=== PATIENT | female | born 1990 | race Caucasian/White ===

== ENCOUNTER 2019-04-26 16:54 | Emergency (ER) | payer MEDICARE, MEDICAID ==
[~2019-04-26] VITALS: Ht 165.1 cm; Wt 80.0 kg
[~2019-04-26 16:54] MED LIST: CYCL-394 PO; IBUP-1051 PO; NO HOME MEDS; ZOF4T PO
[2019-04-26 17:44] LABS: BASOPHILS % (AUTO) 0.4 % (0-1); EOSINOPHILS # (AUTO) 0.1 X10'3 (0-0.9); EOSINOPHILS % (AUTO) 1.6 % (0-6); HEMATOCRIT 40.5 % (35.0-45.0); HEMOGLOBIN 13.5 g/dl (12.0-16.0); LYMPHOCYTES # (AUTO) 2.6 X10'3 (1.1-4.8); LYMPHOCYTES % (AUTO) 34.7 % (21-51); MEAN CORPUSCULAR HEMOGLOBIN 28.1 PG (27.0-31.0); MEAN CORPUSCULAR HGB CONC 33.3 g/dL (33.0-36.5); MEAN CORPUSCULAR VOLUME 84.3 FL (78-98); MEAN PLATELET VOLUME 7.8 FL (7.4-10.4); MONOCYTES # (AUTO) 0.4 X10'3 (0-0.9); NEUTROPHILS # (AUTO) 4.3 X10'3 (1.8-7.7); NEUTROPHILS % (AUTO) 57.3 % (42-75); PLATELET COUNT 282 X10'3 (140-440); RED CELL DISTRIBUTION WIDTH 14.3 % (11.5-14.5); WHITE BLOOD COUNT 7.4 X10'3 (4.5-11.0)
[2019-04-26 17:58] LABS: ALANINE AMINOTRANSFERASE 21 U/L (12-78); ALBUMIN/GLOBULIN RATIO 0.9 (1.1-1.5); ALKALINE PHOSPHATASE 102 IU/L (46-116); ANION GAP 10 (8-16); ASPARTATE AMINO TRANSFERASE 13 U/L (10-37); BILIRUBIN,TOTAL 0.2 MG/DL (0.1-1.0); BLOOD UREA NITROGEN 18 MG/DL (7-18); BUN/CREATININE RATIO 23.4 (6.6-38.0); CALCIUM 9.7 MG/DL (8.5-10.1); CHLORIDE 104 MMOL/L (99-107); CREATININE 0.77 MG/DL (0.40-0.90); GLUCOSE 88 MG/DL (70-104); POTASSIUM 4.3 MMOL/L (3.5-5.1); SODIUM 141 MMOL/L (135-145); TOTAL CARBON DIOXIDE 27.5 MMOL/L (24-32); TOTAL PROTEIN 8.4 G/DL (6.4-8.2); eGFR 89 ML/MIN
[2019-04-26 18:53] LABS: CLARITY,URINE CLOUDY (Clear); COLOR,URINE STRAW (Yellow); GLUCOSE, URINE NEGATIVE (Neg); KETONES,URINE NEGATIVE (Neg); LEUKOCYTE ESTERASE ,URINE SMALL (Neg); NITRITES, URINE NEGATIVE (Neg); OCCULT BLOOD,URINE TRACE-INTACT (Neg); PH,URINE 5.5 (4.8-8.0); PROTEIN,URINE NEGATIVE (Neg); UROBILINOGEN,URINE 0.2 E.U/dL (0.2-1.0)
[2019-04-26 18:56] LABS: UA COLLECTION TYPE CLN CATCH MIDSTREAM
[2019-04-26 19:01] LABS: BACTERIA,URINE 1+ /HPF (Neg)
[2019-04-26 19:02] LABS: HYALINE CASTS 0-3 /LPF (NEGATIVE); MUCUS STRANDS FEW /LPF (Neg); SQUAMOUS EPITHELIAL CELL,UR FEW /LPF (FEW)
--- NOTE | 2019-04-26 19:43 | NUR ---
notified malik oliver about pt lft flank pain and abnormal vitals.malik oliver in room assessing the pt.
[2019-04-26] MEDS ORDERED: ketorolac tromethamine 15mg/ml inj. IM ONE (19:50)
[2019-04-26] MEDS ORDERED: HYDR-3965 PO (20:46)
[2019-04-26] MEDS ORDERED: CEPH-572 PO (20:46)
[2019-04-26 21:10] VITALS: BP 150/107
== END 2019-04-26 21:13 | disposition home or self-care (01) ==
LOC: ER 16:55
DX: K80.20 Calculus of gallbladder without cholecystitis without obstruction (principal); N39.0 Urinary tract infection, site not specified; R19.7 Diarrhea, unspecified; F15.90 Other stimulant use, unspecified, uncomplicated; F17.200 Nicotine dependence, unspecified, uncomplicated; Z79.899 Other long term (current) drug therapy; Z79.2 Long term (current) use of antibiotics; Z79.1 Long term (current) use of non-steroidal anti-inflammatories (NSAID); Z56.0 Unemployment, unspecified
CPT/HCPCS: 36415; 74176; 80053; 81001; 85025; 87088; 96372; 99284; J1885

== ENCOUNTER 2020-07-01 16:23 | Emergency (ER) | payer MEDICAID, MEDICARE ==
[~2020-07-01] VITALS: Ht 165.1 cm; Wt 120.8 kg
[2020-07-01 16:29] VITALS: BP 170/110
[2020-07-01] MEDS ORDERED: CLIN-145 PO (17:51)
== END 2020-07-01 18:30 | disposition home or self-care (01) ==
LOC: ER 16:23
DX: K02.9 Dental caries, unspecified (principal); A64 Unspecified sexually transmitted disease; K08.89 Other specified disorders of teeth and supporting structures; N89.8 Other specified noninflammatory disorders of vagina; F15.90 Other stimulant use, unspecified, uncomplicated; Z56.0 Unemployment, unspecified; Z79.899 Other long term (current) drug therapy
CPT/HCPCS: 36415; 86592; 87491; 99283

== ENCOUNTER 2021-10-21 16:03 | Emergency (ER) | payer MEDICAID ==
[~2021-10-21] VITALS: Ht 165.1 cm; Wt 114.2 kg
[2021-10-21 16:18] VITALS: BP 140/100
[2021-10-21] MEDS ORDERED: azithromycin 250mg tablet PO ONE (17:35)
[2021-10-21] MEDS ORDERED: metroNIDAZOLE 500mg tablet PO ONE (17:35)
[2021-10-21] MEDS ORDERED: CefTRIAXone 250MG inj IM ONE (17:35)
[2021-10-21] MEDS ORDERED: fluconazole 150mg tablet PO ONE (17:35)
[2021-10-21 17:56] LABS: CLARITY,URINE CLEAR (Clear); COLOR,URINE YELLOW (Yellow); GLUCOSE, URINE NEGATIVE (Neg); KETONES,URINE NEGATIVE (Neg); LEUKOCYTE ESTERASE ,URINE NEGATIVE (Neg); NITRITES, URINE NEGATIVE (Neg); OCCULT BLOOD,URINE MODERATE (Neg); PROTEIN,URINE NEGATIVE (Neg); UROBILINOGEN,URINE 0.2 E.U/dL (0.2-1.0)
[2021-10-21 18:00] LABS: UA COLLECTION TYPE CLN CATCH MIDSTREAM
[2021-10-21 18:02] LABS: BACTERIA,URINE FEW /HPF (Neg); MUCUS STRANDS MODERATE /LPF (Neg); RBC,URINE 0-2 /HPF (0-2); SQUAMOUS EPITHELIAL CELL,UR MODERATE /LPF (FEW); WBC,URINE 0-4 /HPF (0-4)
[2021-10-21] MEDS ORDERED: CefTRIAXone 500MG IM Kit w/LIDOcaine IM ONE (18:05)
[2021-10-21] MEDS ORDERED: METR-159 PO (18:16)
[2021-10-21] MEDS ORDERED: DIF150T PO (18:16)
[2021-10-21] MEDS ORDERED: DOXY-11 PO (18:16)
[2021-10-21] MEDS ORDERED: LISI20TA28 PO (18:16)
== END 2021-10-21 19:00 | disposition home or self-care (01) ==
LOC: ER 16:04
DX: I10 Essential (primary) hypertension (principal); Z20.2 Contact with and (suspected) exposure to infections with a predominantly sexual mode of transmission; F15.10 Other stimulant abuse, uncomplicated; Z56.0 Unemployment, unspecified; Z79.899 Other long term (current) drug therapy
CPT/HCPCS: 81001; 96372; 99284; J0696

== ENCOUNTER 2023-01-08 14:19 | Emergency (ER) | payer MEDICAID ==
[~2023-01-08] VITALS: Ht 165.1 cm; Wt 89.5 kg
[2023-01-08 15:21] LABS: BASOPHILS % (AUTO) 0.2 % (0-1); EOSINOPHILS # (AUTO) 0.2 X10'3 (0-0.9); EOSINOPHILS % (AUTO) 2.1 % (0-6); HEMATOCRIT 40.9 % (35.0-45.0); HEMOGLOBIN 13.8 g/dl (12.0-16.0); LYMPHOCYTES # (AUTO) 2.3 X10'3 (1.1-4.8); LYMPHOCYTES % (AUTO) 20.2 % (21-51); MEAN CORPUSCULAR HEMOGLOBIN 29.2 PG (27.0-31.0); MEAN CORPUSCULAR HGB CONC 33.6 g/dL (33.0-36.5); MEAN CORPUSCULAR VOLUME 86.6 FL (78-98); MEAN PLATELET VOLUME 7.7 FL (7.4-10.4); MONOCYTES # (AUTO) 0.6 X10'3 (0-0.9); MONOCYTES % (AUTO) 5.2 % (2-12); NEUTROPHILS # (AUTO) 8.2 X10'3 (1.8-7.7); NEUTROPHILS % (AUTO) 72.3 % (42-75); PLATELET COUNT 223 X10'3 (140-440); RED BLOOD COUNT 4.72 X10'6 (4.20-5.60); RED CELL DISTRIBUTION WIDTH 12.7 % (11.5-14.5); WHITE BLOOD COUNT 11.3 X10'3 (4.5-11.0)
[2023-01-08] MEDS ORDERED: metoclopramide 5 mg/ml inj IV ONE (15:30)
[2023-01-08] MEDS ORDERED: PEG 3350/Na sulf,bicarb,Cl/KCl oral sol 4 liter bottle PO ONE (15:30)
[2023-01-08 15:43] LABS: ALANINE AMINOTRANSFERASE 17 U/L (12-78); ALBUMIN 3.2 G/DL (3.4-5.0); ALBUMIN/GLOBULIN RATIO 0.9 (1.1-1.5); ALKALINE PHOSPHATASE 86 IU/L (46-116); ANION GAP 6 (8-16); ASPARTATE AMINO TRANSFERASE 14 U/L (10-37); BILIRUBIN,TOTAL 0.3 MG/DL (0.1-1.0); BLOOD UREA NITROGEN 15 MG/DL (7-18); BUN/CREATININE RATIO 20.3 (10.0-20.0); CALCIUM 8.8 MG/DL (8.5-10.1); CHLORIDE 104 MMOL/L (99-107); CREATININE 0.74 MG/DL (0.40-0.90); GLUCOSE 102 MG/DL (70-104); POTASSIUM 3.7 MMOL/L (3.5-5.1); SODIUM 136 MMOL/L (135-145); TOTAL CARBON DIOXIDE 26.4 MMOL/L (24-32); TOTAL PROTEIN 6.6 G/DL (6.4-8.2); eGFR 90 ML/MIN
--- NOTE | 2023-01-08 15:45 | NUR ---
RADHA SIMMONS FROM PHARMACY.
[2023-01-08 16:55] VITALS: BP 145/93
--- NOTE | 2023-01-08 17:10 | NUR ---
PT HAS DRANK 2000 CC OF GOLYTELY AND HAS NOT HAD A BM AT THIS TIME. PT AGREED TO CONT DRINKING UNTIL IT IS FINISHED.
== END 2023-01-08 18:21 | disposition home or self-care (01) ==
LOC: ER 14:19
DX: T18.5XXA Foreign body in anus and rectum, initial encounter (principal); F15.10 Other stimulant abuse, uncomplicated; I10 Essential (primary) hypertension; Z79.899 Other long term (current) drug therapy; X58.XXXA Exposure to other specified factors, initial encounter; Y93.89 Activity, other specified; Y92.89 Other specified places as the place of occurrence of the external cause; Y99.8 Other external cause status
CPT/HCPCS: 36415; 74018; 74176; 80053; 85025; 96374; 99285; J2765

== ENCOUNTER 2023-03-14 21:05 | Emergency (ER) | payer MEDICAID ==
[~2023-03-14] VITALS: Ht 165.1 cm; Wt 95.5 kg
[2023-03-14 21:09] VITALS: TEMP 97.9
[2023-03-14] MEDS ORDERED: hyDRALAzine 10mg tablet PO ONE (21:50)
[2023-03-14] MEDS ORDERED: amLODIPine 5mg tablet PO ONE (21:50)
[2023-03-14] MEDS ORDERED: CLON0.1T2 PO (22:21)
[2023-03-14 22:30] VITALS: BP 188/120; PULSE 98; RESP 18; O2SAT 99
== END 2023-03-14 22:48 | disposition home or self-care (01) ==
LOC: ER 21:05
DX: I10 Essential (primary) hypertension (principal)
CPT/HCPCS: 99283

== ENCOUNTER 2023-09-15 14:51 | Emergency (ER) | payer MEDICAID ==
[~2023-09-15] VITALS: Ht 172.7 cm; Wt 100.0 kg
[~2023-09-15 14:51] MED LIST changes: +CLON0.1T2 PO
[2023-09-15 14:56] VITALS: BP 164/107; PULSE 91; RESP 18; TEMP 97.8; O2SAT 100
== END 2023-09-15 16:33 | disposition home or self-care (01) ==
LOC: ER 14:51
DX: F11.20 Opioid dependence, uncomplicated (principal); I10 Essential (primary) hypertension; F15.20 Other stimulant dependence, uncomplicated; Z79.1 Long term (current) use of non-steroidal anti-inflammatories (NSAID); Z79.899 Other long term (current) drug therapy
CPT/HCPCS: 99281

== ENCOUNTER 2024-05-02 17:21 | Emergency (ER) | payer MEDICAID, OTHER ==
[~2024-05-02] VITALS: Ht 165.1 cm; Wt 100.0 kg
[2024-05-02] MEDS: cloNIDine 0.1 mg tablet PO ONE (17:44)
[2024-05-02] MEDS: amLODIPine 5mg tablet PO STA (18:41)
[2024-05-02 18:48] LABS: BASOPHILS % (AUTO) 0.5 % (0-1); EOSINOPHILS # (AUTO) 0.1 X10'3 (0-0.9); EOSINOPHILS % (AUTO) 0.7 % (0-6); HEMATOCRIT 39.4 % (35.0-45.0); HEMOGLOBIN 12.9 g/dl (12.0-16.0); LYMPHOCYTES # (AUTO) 2.5 X10'3 (1.1-4.8); LYMPHOCYTES % (AUTO) 26.3 % (21-51); MEAN CORPUSCULAR HEMOGLOBIN 27.3 PG (27.0-31.0); MEAN CORPUSCULAR HGB CONC 32.7 g/dL (33.0-36.5); MEAN CORPUSCULAR VOLUME 83.4 FL (78-98); MEAN PLATELET VOLUME 8.1 FL (7.4-10.4); MONOCYTES # (AUTO) 0.5 X10'3 (0-0.9); MONOCYTES % (AUTO) 5.6 % (2-12); NEUTROPHILS # (AUTO) 6.3 X10'3 (1.8-7.7); NEUTROPHILS % (AUTO) 66.9 % (42-75); PLATELET COUNT 254 X10'3 (140-440); RED BLOOD COUNT 4.72 X10'6 (4.20-5.60); WHITE BLOOD COUNT 9.4 X10'3 (4.5-11.0)
[2024-05-02 19:07] LABS: ALANINE AMINOTRANSFERASE 18 U/L (12-78); ALBUMIN 3.8 G/DL (3.4-5.0); ALKALINE PHOSPHATASE 91 IU/L (46-116); ANION GAP 7 (8-16); ASPARTATE AMINO TRANSFERASE 17 U/L (10-37); BILIRUBIN,TOTAL 0.3 MG/DL (0.1-1.0); BLOOD UREA NITROGEN 14 MG/DL (7-18); BUN/CREATININE RATIO 17.5 (10.0-20.0); CALCIUM 9.2 MG/DL (8.5-10.1); CHLORIDE 100 MMOL/L (99-107); GLUCOSE 97 MG/DL (70-104); POTASSIUM 3.9 MMOL/L (3.5-5.1); SODIUM 134 MMOL/L (135-145); TOTAL CARBON DIOXIDE 26.8 MMOL/L (24-32); TOTAL PROTEIN 7.7 G/DL (6.4-8.2); eCRCL 89 ML/MIN; eGFR 82 ML/MIN
[2024-05-02 19:49] VITALS: BP 143/103; PULSE 81; RESP 14; O2SAT 96
[2024-05-02] MEDS ORDERED: CLON0.2T PO (20:06)
[2024-05-02] MEDS ORDERED: AMLO-140 PO (20:06)
[2024-05-02 20:23] VITALS: TEMP 98.2
== END 2024-05-02 20:20 | disposition home or self-care (01) ==
LOC: ER 17:22 → EEVIPCON 17:22 → ER 20:20
DX: I16.0 Hypertensive urgency (principal); Z79.1 Long term (current) use of non-steroidal anti-inflammatories (NSAID); Z79.899 Other long term (current) drug therapy
CPT/HCPCS: 36415; 80053; 85025; 99283